=== PATIENT | female | born 1990 | race Caucasian/White ===

== ENCOUNTER 2022-06-21 08:52 | Emergency (ER) | payer SELFPAY ==
[~2022-06-21] VITALS: Ht 167.6 cm; Wt 88.9 kg
--- NOTE | 2022-06-21 09:00 | NUR ---
BIBS C/O COUGH, FEVER, BODY ACHES xYESTERDAY, SOB/TIGHTNESS SINCE LAST NIGHT. ATTACHED TO MONITOR, VITALS ARE WITHIN NORMAL LIMITS. AWAITING MD ORDERS.
--- NOTE | 2022-06-21 09:33 | NUR ---
PT SIGNED WAIVER FORM, PLACED IN PT'S CHART.
--- NOTE | 2022-06-21 09:40 | NUR ---
RAPID COVID AND PCR COVID COLLECTED AND SENT
--- NOTE | 2022-06-21 10:52 | NUR ---
COVID+ MD AWARE AND PATIENT AWARE. ISOLATION PRECAUTIONS OBSERVED AND FOLLOWED.
--- NOTE | 2022-06-21 11:54 | NUR ---
Patient discharged to home in stable condition. Written and verbal after care instructions given. Patient verbalizes understanding of instruction.
[2022-06-21 11:55] VITALS: BP 140/65
== END 2022-06-21 11:50 | disposition home or self-care (01) ==
LOC: ER 09:04
DX: U07.1 COVID-19 (principal); J45.909 Unspecified asthma, uncomplicated
CPT/HCPCS: 99284; 71045; 87426; U0003; C9803